=== PATIENT | male | born 1995 | race American Indian/Alaskan Native ===

== ENCOUNTER 2019-02-26 13:10 | Emergency (ER) | payer MEDICAID ==
[2019-02-26] MEDS ORDERED: PEPCID IV ONE (13:22)
[2019-02-26] MEDS ORDERED: BENADRYL IV ONE (13:22)
[2019-02-26] MEDS ORDERED: DECADRON IV ONE (13:22)
--- NOTE | 2019-02-26 13:31 | Emergency Department Report ---
ED General Adult HPI - General Chief complaint: Allergic Reaction Stated complaint: BEE STING/ALLERGIC REACTION Time Seen by Provider: 02/26/19 13:22 Source: patient Mode of arrival: Ambulatory Limitations: No Limitations - History of Present Illness Initial comments: Patient states "I am [place], [place] I been stung by bees before but not like this." Patient developed hives after being stung in the ankle. He developed hives of the extremities and face. He does not have any apparent oral swelling. He is not wheezing at the time of my encounter. -: Gradual, minutes(s) Location: face, upper extremity, lower extremity Quality: other (itching swelling no complaint of pain) Consistency: constant Improves with: none Worsens with: none Associated Symptoms: denies other symptoms Treatments Prior to Arrival: none - Related Data Allergies Allergy/AdvReac Type Severity Reaction Status Date / Time bee pollen Allergy Unknown Verified 02/26/19 13:13 ED Review of Systems ROS: Stated complaint: BEE STING/ALLERGIC REACTION Other details as noted in HPI Constitutional: denies: chills, fever Eyes: denies: eye pain, eye discharge, vision change ENT: denies: ear pain, throat pain Respiratory: denies: cough, shortness of breath, wheezing Cardiovascular: denies: chest pain, palpitations Endocrine: no symptoms reported Gastrointestinal: denies: abdominal pain, nausea, diarrhea Genitourinary: denies: urgency, dysuria Musculoskeletal: denies: back pain, joint swelling, arthralgia Skin: as per HPI, rash, pruritus. denies: lesions Neurological: denies: headache, weakness, paresthesias Psychiatric: denies: anxiety, depression Hematological/Lymphatic: denies: easy bleeding, easy bruising ED Past Medical Hx - Past Medical History Previous Medical History?: Yes Additional medical history: back problems, Neuropathy pain in legs, Back pain - Surgical History Past Surgical History?: Yes Additional Surgical History: brenton leg surgery - Social History Smoking Status: Current Every Day Smoker Substance Use Type: Alcohol, Marijuana ED Physical Exam - General Limitations: No Limitations General appearance: alert, in no apparent distress - Head Head exam: Present: atraumatic, normocephalic - Eye Eye exam: Present: normal appearance - ENT ENT exam: Present: mucous membranes moist, other (mild angioedema) - Neck Neck exam: Present: normal inspection - Respiratory Respiratory exam: Present: normal lung sounds bilaterally. Absent: respiratory distress - Cardiovascular Cardiovascular Exam: Present: regular rate, normal rhythm. Absent: systolic murmur, diastolic murmur, rubs, gallop - GI/Abdominal GI/Abdominal exam: Present: soft, normal bowel sounds. Absent: distended, tenderness - Rectal Rectal exam: Present: deferred - Extremities Exam Extremities exam: Present: other (ankle edema) - Back Exam Back exam: Present: normal inspection - Neurological Exam Neurological exam: Present: alert, oriented X3 - Psychiatric Psychiatric exam: Present: normal affect, normal mood - Skin Skin exam: Present: warm, dry, intact, normal color, urticaria (moderate). Absent: rash ED Course Vital Signs 02/26/19 02/26/19 02/26/19 13:13 13:39 14:51 Temperature 97.6 F 98.1 F Pulse Rate 102 H 74 71 Respiratory 20 14 19 Rate Blood Pressure 102/69 Blood Pressure 120/70 115/68 [Left] O2 Sat by Pulse 97 99 100 Oximetry - Reevaluation(s) Reevaluation #1: Patient eloped after initial treatment. He was seen walking out with his IV. The nurse at triage removed it. 02/26/19 15:19 02/26/19 15:20 Critical care attestation.: If time is entered above; I have spent that time in minutes in the direct care of this critically ill patient, excluding procedure time. ED Disposition Clinical Impression: Allergic reaction to hymenoptera venom Disposition: Z-07 ELOPED Is pt being admited?: No Does the pt Need Aspirin: No Condition: Stable Time of Disposition: 15:20
[2019-02-26 14:52] VITALS: BP 115/68
== END 2019-02-26 15:39 | disposition left against medical advice (07) ==
LOC: ED 13:10
DX: T63.441A Toxic effect of venom of bees, accidental (unintentional), initial encounter (principal); F17.200 Nicotine dependence, unspecified, uncomplicated; F12.10 Cannabis abuse, uncomplicated; Y92.89 Other specified places as the place of occurrence of the external cause
CPT/HCPCS: 96374; 96375; 99282; J1100; J1200